=== PATIENT | male | born 1935 | race Caucasian/White ===

== ENCOUNTER 2017-02-06 16:55 | Inpatient (IN) | payer MEDICARE, BC, OTHER ==
[~2017-02-06] VITALS: Ht 188 cm; Wt 89.9 kg
[2017-02-06] MEDS ORDERED: OMEG1CAP23 PO (17:27)
[2017-02-06] MEDS ORDERED: ROSU5TAB PO (17:27)
[2017-02-06] MEDS ORDERED: CLOP75TA PO (17:27)
[2017-02-06] MEDS ORDERED: ENAL5TAB PO (17:27)
[2017-02-06] MEDS ORDERED: AMLO5TAB2 PO (17:27)
[2017-02-06] MEDS ORDERED: SODIUM CHLORIDE FLUSH 10ML SYR IVF ONE (17:30)
[2017-02-06 17:44] LABS: HEMATOCRIT 46.6 % (39.2-51.8); HEMOGLOBIN 15.7 g/dL (13.7-18.0); WHITE BLOOD COUNT 8.4 x10^3/uL (3.4-10)
[2017-02-06 17:58] LABS: BLOOD UREA NITROGEN 34 mg/dL (7-18)
[2017-02-06 18:03] LABS: IS PT STATUS REG ER OR PRE ER? YES
[2017-02-06 21:04] VITALS: BP 132/55
[2017-02-07 01:57] VITALS: BP 110/60
[2017-02-07 07:03] VITALS: BP 125/81
[2017-02-07] MEDS ORDERED: SODIUM CHLORIDE 0.9% 1,000 ML IV SCH (08:09)
[2017-02-07] MEDS ORDERED: CEFAZOLIN PMX 1GM/50ML 50 ML IVPB ONE (08:30)
[2017-02-07] MEDS ORDERED: MIDAZOLAM 1 MG/ML, 5ML ONE (08:51)
[2017-02-07] MEDS ORDERED: CEFAZOLIN 1,000 MG ONE (08:52)
[2017-02-07] MEDS ORDERED: LIDOCAINE 2%, 20ML ONE (08:52)
[2017-02-07] MEDS ORDERED: FENTANYL PF 100 MCG/2ML ONE (08:52)
[2017-02-07] MEDS ORDERED: CEFAZOLIN PMX 1GM/50ML 50 ML ONE (08:52)
[2017-02-07] MEDS: ENALAPRIL 5MG TABLET PO SCH ×2 (09:00→20:49)
[2017-02-07] MEDS: AMLODIPINE 5 MG TABLET PO SCH (09:30)
[2017-02-07 13:08] VITALS: BP 122/77
[2017-02-07] MEDS: CEFAZOLIN PMX 1GM/50ML 50 ML IV SCH (18:00)
[2017-02-07 18:59] VITALS: BP 137/83
[2017-02-07] MEDS: HYDROcodone/APAP 5/325 TABLET PO PRN (20:49)
[2017-02-07] MEDS ORDERED: ROSUVASTATIN CALCIUM PO SCH (21:00)
[2017-02-08 02:01] VITALS: BP 116/68
[2017-02-08] MEDS: CEFAZOLIN PMX 1GM/50ML 50 ML IV SCH (02:45)
[2017-02-08] MEDS: HYDROcodone/APAP 5/325 TABLET PO PRN (02:53)
[2017-02-08 05:13] LABS: HEMATOCRIT 44.8 % (39.2-51.8); HEMOGLOBIN 15.1 g/dL (13.7-18.0); WHITE BLOOD COUNT 9.6 x10^3/uL (3.4-10)
[2017-02-08 05:15] LABS: BLOOD UREA NITROGEN 27 mg/dL (7-18)
[2017-02-08 05:21] LABS: ASPARTATE AMINO TRANSFERASE 22 U/L (15-37)
[2017-02-08 07:18] VITALS: BP 115/71
[2017-02-08] MEDS ORDERED: APIX5TAB PO (08:44)
[2017-02-08] MEDS: AMLODIPINE 5 MG TABLET PO SCH (09:01)
[2017-02-08] MEDS: ENALAPRIL 5MG TABLET PO SCH (09:01)
== END 2017-02-08 10:55 | disposition home or self-care (01) | DRG 242 ==
LOC: ED 18:45 → EDIP 18:46 → ED 19:03 → 5SO 20:53
PROVIDERS: ADMIT Surgery; ATTEND Surgery
PROC: 0JH606Z Insertion of Pacemaker, Dual Chamber into Chest Subcutaneous Tissue and Fascia, Open Approach (ICD-10-PCS; principal; 2017-02-06)
PROC: 02HK3JZ Insertion of Pacemaker Lead into Right Ventricle, Percutaneous Approach (ICD-10-PCS; 2017-02-06)
PROC: 02H63JZ Insertion of Pacemaker Lead into Right Atrium, Percutaneous Approach (ICD-10-PCS; 2017-02-06)
DX: I49.5 Sick sinus syndrome (principal); I46.9 Cardiac arrest, cause unspecified; N17.9 Acute kidney failure, unspecified; I48.0 Paroxysmal atrial fibrillation; I73.9 Peripheral vascular disease, unspecified; E78.00 Pure hypercholesterolemia, unspecified; E78.5 Hyperlipidemia, unspecified; H40.9 Unspecified glaucoma; I12.9 Hypertensive chronic kidney disease with stage 1 through stage 4 chronic kidney disease, or unspecified chronic kidney disease; I25.10 Atherosclerotic heart disease of native coronary artery without angina pectoris; N18.9 Chronic kidney disease, unspecified; Z86.73 Personal history of transient ischemic attack (TIA), and cerebral infarction without residual deficits; Z95.1 Presence of aortocoronary bypass graft; Z88.8 Allergy status to other drugs, medicaments and biological substances
CPT/HCPCS: 33208; 36415; 71010; 80048; 80053; 81003; 82040; 83735; 84484; 85025; 85610; 93005; 93306; 96361; 96365; 96375; 96376; 99156; 99157; 99285; C1779; C1785; C1892; J0690; J2250; J3010; J3490